=== PATIENT | female | born 1995 | race Caucasian/White ===

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

== ENCOUNTER 2017-06-21 15:32 | Emergency (ER) | payer OTHER ==
[2017-06-21] MEDS ORDERED: Zofran 4 MG/2 ML VIAL IV ONE (15:56)
[2017-06-21] MEDS ORDERED: Sodium Chloride 0.9% 1000 ML 1,000 ML IV STA (15:56)
[2017-06-21] MEDS ORDERED: MORPHINE SULFATE 10 MG/ML IV ONE ×2 (16:04→16:19)
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
[2017-06-21] MEDS ORDERED: MORPHINE SULFATE 10 MG/ML ONE ×2 (16:16→16:28)
[2017-06-21] MEDS ORDERED: Sodium Chloride 0.9% 1000 ML 1,000 ML ONE (16:16)
[2017-06-21] MEDS ORDERED: Zofran 4 MG/2 ML VIAL ONE (16:16)
[2017-06-21 16:21] LABS: Amphetamine,Urine NEGATIVE (NEGATIVE); Barbiturate,Urine NEGATIVE (NEGATIVE); Benzodiazepine,Urine NEGATIVE (NEGATIVE); Cocaine,Urine NEGATIVE (NEGATIVE); Methadone,Urine NEGATIVE (NEGATIVE); Opiate,Urine NEGATIVE (NEGATIVE); PCP,Urine NEGATIVE (NEGATIVE); THC,Urine POSITIVE (NEGATIVE)
[2017-06-21 16:23] LABS: Appearance HAZY (CLEAR); Bacteria MANY /HPF (NEGATIVE); Bilirubin NEGATIVE (NEGATIVE); Blood 250 Ery/ul (0-5); Epithelial Cells MODERATE /HPF (FEW); Glucose NEGATIVE (NEGATIVE); Ketones NEGATIVE (NEGATIVE); Leukocyte Esterase 2+ (NEGATIVE); Nitrite POSITIVE (NEGATIVE); Protein,Urine Dip 3+ (Negative); Urobilinogen NORMAL mg/dL (0-1); WBC >100 /HPF (0-5)
[2017-06-21 16:24] LABS: BASOPHIL % 0.1 % (0.0-0.4); Basophil (Absolute #) 0.01 (0-0.4); Eosinophil % 0.3 % (0.00-5.0); Eosinophil (Absolute #) 0.04 (0-0.5); Granulocyte Absolute (ANC) 8.06 (1.4-6.9); Granulocytes % 65.8 % (36.0-66.0); Hematocrit 36.9 % (35-47); Hemoglobin 12.2 gm/dl (12.0-16.0); Lymphocyte (Absolute #) 2.92 (1.0-4.6); Lymphocytes % 23.8 % (24.0-44.0); Mean Cell Volume 84.1 fl (78-100); Mean Corpuscular Hemoglobin 27.8 pg (26-32); Mean Corpuscular Hgb Concent. 33.1 g/dl (32-36); Mean Platelet Volume 10.7 fl (6-9.5); Monocyte (Absolute #) 1.22 (0.0-1.3); Platelet Count 302 K/mm3 (150-450); Red Blood Count 4.39 M/mm3 (4.1-5.4); Red Cell Distribution Width 13.2 % (11.5-14.0); White Blood Count 12.3 K/mm3 (4.0-10.5)
[2017-06-21] MEDS ORDERED: ROCEPHIN 2 Gm-D5w 50ML BAG** 2 G/50 ML IVPB IV STA (16:33)
[2017-06-21 16:40] LABS: ANION GAP 16.6 MEQ/L (5-15); BLOOD UREA NITROGEN 14 mg/dL (7-17); CHLORIDE 102 mmol/L (98-107); Calcium 10.2 mg/dL (8.4-10.2); Carbon Dioxide 27 mmol/L (22-30); Creatinine 1 0.79 mg/dL (0.52-1.04); Glucose 97 mg/dL (74-106); Potassium 3.9 mmol/L (3.5-5.1); SODIUM 141 mmol/L (137-145)
[2017-06-21] MEDS ORDERED: ROCEPHIN 2 Gm-D5w 50ML BAG** 2 G/50 ML IVPB IV ONE (17:11)
[2017-06-21 18:32] VITALS: BP 114/58; PULSE 92; O2SAT 100
--- NOTE | 2017-06-22 08:46 | XRAY ---
Indication: Right upper quadrant abdominal pain. Multiple contiguous axial images obtained through the abdomen and pelvis without contrast as ordered. Comparison: None Lung bases are clear. Heart is not enlarged. Noncontrasted stomach and bowel loops appear nonobstructed. Normal appendix. Mild gallbladder sludge. 2.5 cm left ovary cyst. No free fluid/air. Remaining liver, pancreas, spleen, adrenal glands, kidneys, ureters, bladder, uterus, and aorta appear unremarkable for noncontrast exam. Osseous structures intact. Impression: 1. Gallbladder sludge. Gallbladder sonogram may yield further information if clinically warranted. 2. 2.5 cm left ovary cyst. Comment: Preliminary interpretation was made by [facility]. No critical discrepancy. CT DI 11.11
== END 2017-06-21 18:31 | disposition home or self-care (01) ==
LOC: ED 15:32
DX: N12 Tubulo-interstitial nephritis, not specified as acute or chronic (principal)
CPT/HCPCS: 36000; 36415; 74176; 80048; 80307; 81000; 84703; 85025; 87040; 87077; 87086; 87186; 96360; 96365; 96374; 96375; 99284; J0696; J2270; J2405

== ENCOUNTER 2018-01-10 18:34 | Emergency (ER) | payer OTHER ==
[2018-01-10 18:50] VITALS: BP 149/90; PULSE 100; O2SAT 98
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
[2018-01-10] MEDS ORDERED: Adacel Vial IM ONE ×2 (19:13→19:15)
[2018-01-10] MEDS ORDERED: TORAdol 30 mg Injection IM ONE (19:20)
[2018-01-10] MEDS ORDERED: TORAdol 30 mg Injection ONE (19:20)
== END 2018-01-10 19:36 | disposition home or self-care (01) ==
LOC: ED 18:34
PROC: 0HQ1XZZ Repair Face Skin, External Approach (ICD-10-PCS; principal; 2018-01-10)
DX: S01.111A Laceration without foreign body of right eyelid and periocular area, initial encounter (principal); W01.198A Fall on same level from slipping, tripping and stumbling with subsequent striking against other object, initial encounter; Y93.01 Activity, walking, marching and hiking; Y92.009 Unspecified place in unspecified non-institutional (private) residence as the place of occurrence of the external cause
CPT/HCPCS: 12011; 90471; 90715; 96372; 99284; J1885

== ENCOUNTER 2018-02-08 14:29 | Emergency (ER) | payer OTHER ==
[2018-02-08] MEDS ORDERED: BACIGUENT PACKET TP ONE (14:55)
[2018-02-08] MEDS ORDERED: BACIGUENT PACKET ONE (14:57)
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
[2018-02-08 15:46] LABS: Amphetamine,Urine NEGATIVE (NEGATIVE); Barbiturate,Urine NEGATIVE (NEGATIVE); Benzodiazepine,Urine POSITIVE (NEGATIVE); Methadone,Urine NEGATIVE (NEGATIVE); Opiate,Urine NEGATIVE (NEGATIVE); PCP,Urine NEGATIVE (NEGATIVE); THC,Urine POSITIVE (NEGATIVE)
[2018-02-08 15:56] LABS: BASOPHIL % 0.1 % (0.0-0.4); Basophil (Absolute #) 0.01 (0-0.4); Eosinophil % 0.3 % (0.00-5.0); Eosinophil (Absolute #) 0.04 (0-0.5); Granulocyte Absolute (ANC) 11.01 (1.4-6.9); Granulocytes % 80.3 % (36.0-66.0); Hematocrit 41.4 % (35-47); Hemoglobin 13.6 gm/dl (12.0-16.0); Mean Cell Volume 88.1 fl (78-100); Mean Corpuscular Hemoglobin 28.9 pg (26-32); Mean Corpuscular Hgb Concent. 32.9 g/dl (32-36); Mean Platelet Volume 10.2 fl (6-9.5); Monocyte (Absolute #) 1.13 (0.0-1.3); Monocytes % 8.3 % (0.0-12.0); Platelet Count 306 K/mm3 (150-450); Red Cell Distribution Width 13.3 % (11.5-14.0); White Blood Count 13.7 K/mm3 (4.0-10.5)
[2018-02-08 16:03] VITALS: O2SAT 98
[2018-02-08 16:04] LABS: Cocaine,Urine NEGATIVE (NEGATIVE)
[2018-02-08 16:11] LABS: Appearance TURBID (CLEAR)
[2018-02-08 16:12] LABS: Bilirubin NEGATIVE (NEGATIVE); Blood NEGATIVE Ery/ul (0-5); Glucose NEGATIVE (NEGATIVE); Ketones NEGATIVE (NEGATIVE); Leukocyte Esterase MODERATE (NEGATIVE); Nitrite NEGATIVE (NEGATIVE); Protein,Urine Dip 100 (Negative); Specific Gravity 1.038 (1.005-1.025); Urobilinogen NORMAL mg/dL (0-1)
[2018-02-08 16:20] LABS: ACETAMINOPHEN 15 ug/ml (10-30); ALBUMIN 5.5 g/dL (3.5-5.0); ALKALINE PHOSPHATASE 59 U/L (38-126); ANION GAP 15.5 MEQ/L (5-15); BLOOD UREA NITROGEN 17 mg/dL (7-17); CHLORIDE 103 mmol/L (98-107); Calcium 10.4 mg/dL (8.4-10.2); Carbon Dioxide 26 mmol/L (22-30); Creatinine 1 0.82 mg/dL (0.52-1.04); Glucose 84 mg/dL (74-106); Potassium 3.7 mmol/L (3.5-5.1); SGOT/AST 41 U/L (14-36); SGPT/ALT 23 U/L (0-35); SODIUM 141 mmol/L (137-145); Total Protein 8.7 g/dL (6.3-8.2)
[2018-02-08 16:22] LABS: ETHYL ALCOHOL < 10 mg/dL (0-10); SALICYLATE < 1.0 mg/dL (2-20)
[2018-02-08 17:10] VITALS: BP 98/76; PULSE 76
[2018-02-08] MEDS ORDERED: BACTRIM DS TABLET PO ONE ×2 (17:24→17:27)
== END 2018-02-08 17:37 | disposition home or self-care (01) ==
LOC: ED 14:29
DX: S61.511A Laceration without foreign body of right wrist, initial encounter (principal); X78.9XXA Intentional self-harm by unspecified sharp object, initial encounter; F41.9 Anxiety disorder, unspecified; N39.0 Urinary tract infection, site not specified
CPT/HCPCS: 36415; 80053; 80307; 81001; 81025; 85025; 87077; 87086; 87186; 90791; 93005; 99284; G0480; G0481; Q3014; A9270-GY

== ENCOUNTER 2018-04-21 10:15 | Emergency (ER) | payer MEDICAID, OTHER ==
[2018-04-21] MEDS ORDERED: Sodium Chloride 0.9% 1000 ML 1,000 ML IV STA (10:43)
[2018-04-21] MEDS ORDERED: Sodium Chloride 0.9% 1000 ML 1,000 ML ONE (10:48)
[2018-04-21 11:09] LABS: BASOPHIL % 0.2 % (0.0-0.4); Basophil (Absolute #) 0.01 (0-0.4); Eosinophil % 0.2 % (0.00-5.0); Eosinophil (Absolute #) 0.01 (0-0.5); Granulocyte Absolute (ANC) 4.33 (1.4-6.9); Granulocytes % 65.7 % (36.0-66.0); Hematocrit 37.3 % (35-47); Hemoglobin 12.3 gm/dl (12.0-16.0); Lymphocyte (Absolute #) 1.08 (1.0-4.6); Lymphocytes % 16.4 % (24.0-44.0); Mean Cell Volume 86.7 fl (78-100); Mean Corpuscular Hemoglobin 28.6 pg (26-32); Mean Platelet Volume 10.9 fl (6-9.5); Monocyte (Absolute #) 1.15 (0.0-1.3); Monocytes % 17.5 % (0.0-12.0); Platelet Count 258 K/mm3 (150-450); Red Cell Distribution Width 12.3 % (11.5-14.0); White Blood Count 6.6 K/mm3 (4.0-10.5)
[2018-04-21 11:16] LABS: ALBUMIN 4.4 g/dL (3.5-5.0); ALKALINE PHOSPHATASE 39 U/L (38-126); ANION GAP 14.7 MEQ/L (5-15); BLOOD UREA NITROGEN 5 mg/dL (7-17); CHLORIDE 101 mmol/L (98-107); Calcium 9.3 mg/dL (8.4-10.2); Carbon Dioxide 25 mmol/L (22-30); Creatinine 1 0.59 mg/dL (0.52-1.04); Glucose 88 mg/dL (74-106); Potassium 3.4 mmol/L (3.5-5.1); SGOT/AST 21 U/L (14-36); SGPT/ALT 19 U/L (0-35); SODIUM 137 mmol/L (137-145); Total Protein 7.3 g/dL (6.3-8.2)
[2018-04-21 11:29] LABS: Appearance CLEAR (CLEAR); Bacteria RARE /HPF (NEGATIVE); Bilirubin NEGATIVE (NEGATIVE); Blood NEGATIVE Ery/ul (0-5); Epithelial Cells RARE /HPF (FEW); Glucose NEGATIVE (NEGATIVE); Ketones TRACE (NEGATIVE); Leukocyte Esterase SMALL (NEGATIVE); Mucus SLIGHT /HPF (NEGATIVE); Nitrite NEGATIVE (NEGATIVE); Protein,Urine Dip NEGATIVE (Negative); Urobilinogen 2 mg/dL (0-1)
[2018-04-21] MEDS ORDERED: Klor Con 10 MEQ PO ONE ×2 (11:47→12:00)
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
[2018-04-21 12:05] VITALS: BP 122/66; PULSE 86; O2SAT 92
== END 2018-04-21 12:22 | disposition home or self-care (01) ==
LOC: ED 10:15
DX: O21.0 Mild hyperemesis gravidarum (principal); Z3A.00 Weeks of gestation of pregnancy not specified
CPT/HCPCS: 36000; 36415; 80053; 81001; 81025; 85025; 96360; 96374; 99284; A9270-GY

== ENCOUNTER 2018-08-16 21:20 | Emergency (ER) | payer OTHER ==
[2018-08-16 21:37] VITALS: BP 158/85; PULSE 93; O2SAT 100
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
== END 2018-08-16 22:20 | disposition home or self-care (01) ==
LOC: ED 21:20
DX: Z04.89 Encounter for examination and observation for other specified reasons (principal)
CPT/HCPCS: 99283

== ENCOUNTER 2018-09-12 11:58 | Emergency (ER) | payer OTHER ==
[2018-09-12 12:19] VITALS: BP 118/70; O2SAT 98
[2018-09-12] MEDS ORDERED: TORAdol 30 mg Injection IM ONE (12:32)
[2018-09-12] MEDS ORDERED: TORAdol 30 mg Injection ONE (12:33)
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
[2018-09-12 12:48] VITALS: PULSE 74
== END 2018-09-12 12:47 | disposition home or self-care (01) ==
LOC: ED 11:58
DX: N75.0 Cyst of Bartholin's gland (principal); Z3A.29 29 weeks gestation of pregnancy
CPT/HCPCS: 96372; 99284; J1885

== ENCOUNTER 2018-12-08 02:10 | Inpatient (IN) | payer MEDICAID ==
[2018-12-08] MEDS ORDERED: BRETHINE 1 MG/ML SQ PRN (18:00)
[2018-12-08] MEDS ORDERED: PITOCIN 30 UNITS/ LR 500 ML 500 ML IV SCH (18:00)
[2018-12-08] MEDS ORDERED: Cervidil 10 MG VAG SCH (18:00)
[2018-12-08] MEDS ORDERED: Zofran 4 MG/2 ML VIAL IV PRN (18:00)
[2018-12-08] MEDS ORDERED: TYLENOL EXTRA STRENGTH 500 MG PO PRN (18:00)
[2018-12-08] MEDS ORDERED: Phenergan 25 MG INJ IV PRN (18:00)
[2018-12-08] MEDS: Lactated Ringers 1,000 ML IV SCH (19:52)
[2018-12-08 19:57] LABS: BASOPHIL % 0.1 % (0.0-0.4); Basophil (Absolute #) 0.01 (0-0.4); Eosinophil % 0.4 % (0.00-5.0); Eosinophil (Absolute #) 0.05 (0-0.5); Granulocyte Absolute (ANC) 8.99 (1.4-6.9); Granulocytes % 70.3 % (36.0-66.0); Hematocrit 34.7 % (35-47); Hemoglobin 11.2 gm/dl (12.0-16.0); Lymphocyte (Absolute #) 2.62 (1.0-4.6); Lymphocytes % 20.5 % (24.0-44.0); Mean Cell Volume 88.1 fl (78-100); Mean Corpuscular Hemoglobin 28.4 pg (26-32); Mean Corpuscular Hgb Concent. 32.3 g/dl (32-36); Mean Platelet Volume 12.6 fl (6-9.5); Monocyte (Absolute #) 1.11 (0.0-1.3); Monocytes % 8.7 % (0.0-12.0); Platelet Count 245 K/mm3 (150-450); Red Blood Count 3.94 M/mm3 (4.1-5.4); Red Cell Distribution Width 14.6 % (11.5-14.0); White Blood Count 12.8 K/mm3 (4.0-10.5)
[2018-12-08 20:19] LABS: Appearance CLEAR (CLEAR); Bilirubin NEGATIVE (NEGATIVE); Blood NEGATIVE Ery/ul (0-5); Epithelial Cells RARE /HPF (FEW); Glucose NEGATIVE (NEGATIVE); Hyaline Casts 0-2 /LPF (0-2); Ketones NEGATIVE (NEGATIVE); Leukocyte Esterase NEGATIVE (NEGATIVE); Mucus SLIGHT /HPF (NEGATIVE); Nitrite NEGATIVE (NEGATIVE); Protein,Urine Dip NEGATIVE (Negative); Specific Gravity 1.026 (1.005-1.025); Urobilinogen NEGATIVE mg/dL (0-1)
[2018-12-08 20:21] LABS: Amphetamine,Urine NEGATIVE (NEGATIVE); Barbiturate,Urine NEGATIVE (NEGATIVE); Benzodiazepine,Urine NEGATIVE (NEGATIVE); Cocaine,Urine NEGATIVE (NEGATIVE); Methadone,Urine NEGATIVE (NEGATIVE); Opiate,Urine NEGATIVE (NEGATIVE); PCP,Urine NEGATIVE (NEGATIVE); THC,Urine NEGATIVE (NEGATIVE)
[2018-12-09] MEDS: Lactated Ringers 1,000 ML IV SCH ×2 (00:42→04:59)
[2018-12-09] MEDS ORDERED: PROCARDIA 10 MG PO ONE (01:35)
[2018-12-09] MEDS ORDERED: Pepcid 20 MG PO PRN (02:20)
[2018-12-09] MEDS ORDERED: TYLENOL 325 MG PO PRN (02:22)
[2018-12-09] MEDS ORDERED: BRETHINE 1 MG/ML SQ PRN (05:00)
[2018-12-09] MEDS ORDERED: PITOCIN 30 UNITS/ LR 500 ML 500 ML IV SCH (05:00)
[2018-12-09] MEDS ORDERED: Lactated Ringers 1,000 ML IV ONE ×2 (08:21→13:28)
[2018-12-09] MEDS ORDERED: CEFAZOLIN 2 GM-D5W BAG** 2 GM/50 ML ML IV SCH (08:30)
[2018-12-09] MEDS ORDERED: Reglan 10 MG/2 ML IV SCH (08:30)
[2018-12-09] MEDS ORDERED: BICITRA 30 ML CUP PO SCH (08:30)
[2018-12-09] MEDS ORDERED: Pepcid 20 MG VIAL IV SCH (08:30)
[2018-12-09 09:34] LABS: INR 0.9 (0.8-3.0); PROTIME 10.2 SECONDS (9.95-12.35)
[2018-12-09 09:36] LABS: PTT 26.5 SECONDS (25.3-37.0)
[2018-12-09 09:59] LABS: ABO TYPING A; Antibody Screen NEGATIVE (NEGATIVE); RH TYPING POSITIVE
[2018-12-09] MEDS ORDERED: TUCKS TP PRN (13:00)
[2018-12-09] MEDS: Colace 100 MG PO SCH ×3 (13:00→22:04)
[2018-12-09] MEDS ORDERED: DEMEROL 50 MG IV PRN ×2 (13:00→15:00)
[2018-12-09] MEDS ORDERED: Phenergan 25 MG INJ IV PRN (13:00)
[2018-12-09] MEDS ORDERED: Mylicon 80MG PO PRN (13:00)
[2018-12-09] MEDS ORDERED: CORTISONE 1% CREAM TP PRN (13:00)
[2018-12-09] MEDS ORDERED: Anucort-HC SUPPOSITORY PR PRN (13:00)
[2018-12-09] MEDS ORDERED: Dulcolax 10 MG SUPP PR PRN (13:00)
[2018-12-09] MEDS ORDERED: LANSINOH 40 GM TOP PRN (13:00)
[2018-12-09] MEDS ORDERED: Ambien 10 MG PO PRN (13:00)
[2018-12-09] MEDS ORDERED: Sensorcaine 0.25% 10 ML ONE (13:28)
[2018-12-09] MEDS ORDERED: Astramorph-Pf 5 MG/10 ML ONE (13:47)
[2018-12-09] MEDS ORDERED: Ephedrine Sulfate 50 MG/ML ONE (13:59)
[2018-12-09] MEDS ORDERED: Marcaine 0.5%/Epinephrine 10 ML ONE (14:14)
[2018-12-09] MEDS ORDERED: Pitocin 10 UNITS/ML ONE (14:16)
[2018-12-09] MEDS ORDERED: Marcaine 0.5%/Epinephrine 10 ML IJ ONE (14:33)
[2018-12-09] MEDS ORDERED: ENGERIX-B 10 MCG FREE PEDIATRIC IM ONE (14:45)
[2018-12-09] MEDS ORDERED: XYLOCAINE 1% HCL 20 ML MDV IJ PRN (14:45)
[2018-12-09] MEDS ORDERED: Erythromycin 1 GM OP ONE (14:45)
[2018-12-09] MEDS ORDERED: Vitamin K 1 MG IM ONE (14:45)
[2018-12-09] MEDS ORDERED: BENADRYL 50 MG/ML ONE (14:46)
[2018-12-09] MEDS ORDERED: Zofran 4 MG/2 ML VIAL ONE (14:48)
[2018-12-09] MEDS ORDERED: Narcan 0.4 MG/ML IV PRN (15:00)
[2018-12-09] MEDS ORDERED: BENADRYL 50 MG/ML IV PRN (15:00)
[2018-12-09] MEDS ORDERED: Sodium Chloride 0.9% 10 ML FLUSH Syringe IJ PRN (15:00)
[2018-12-09] MEDS ORDERED: CLARITIN 10 MG PO PRN (15:00)
[2018-12-09] MEDS ORDERED: MORPHINE SULFATE 2 MG INJ IV PRN (15:00)
[2018-12-09] MEDS ORDERED: Nubain 10 MG/ML IV PRN (15:00)
[2018-12-09] MEDS: Dextrose 5%-Lr IV Solution 1000 ML 1,000 ML IV SCH ×2 (15:27→23:33)
[2018-12-09 15:34] LABS: Appearance CLEAR (CLEAR); Bilirubin NEGATIVE (NEGATIVE); Blood NEGATIVE Ery/ul (0-5); Epithelial Cells RARE /HPF (FEW); Glucose NEGATIVE (NEGATIVE); Ketones NEGATIVE (NEGATIVE); Leukocyte Esterase NEGATIVE (NEGATIVE); Nitrite NEGATIVE (NEGATIVE); Protein,Urine Dip NEGATIVE (Negative); Specific Gravity 1.014 (1.005-1.025); Urobilinogen NEGATIVE mg/dL (0-1)
[2018-12-09] MEDS ORDERED: HOLD NARCOTIC ANALGESICS AND SEDATIVES X24 HR MC PRN (18:17)
[2018-12-09] MEDS ORDERED: Zofran 4 MG/2 ML VIAL IV PRN (18:22)
[2018-12-09] MEDS: MOTRIN 400 MG PO PRN (20:06)
[2018-12-09] MEDS: PERCOCET TABLET 5/325MG PO PRN (21:56)
[2018-12-10] MEDS: MOTRIN 400 MG PO PRN ×3 (01:56→20:17)
[2018-12-10] MEDS: PERCOCET TABLET 5/325MG PO PRN ×2 (01:58→05:58)
[2018-12-10 05:02] LABS: BASOPHIL % 0.1 % (0.0-0.4); Basophil (Absolute #) 0.01 (0-0.4); Eosinophil % 0.4 % (0.00-5.0); Eosinophil (Absolute #) 0.05 (0-0.5); Granulocyte Absolute (ANC) 8.83 (1.4-6.9); Granulocytes % 75.8 % (36.0-66.0); Hematocrit 28.4 % (35-47); Hemoglobin 9.1 gm/dl (12.0-16.0); Lymphocyte (Absolute #) 1.65 (1.0-4.6); Lymphocytes % 14.2 % (24.0-44.0); Mean Cell Volume 90.2 fl (78-100); Mean Platelet Volume 12.5 fl (6-9.5); Monocytes % 9.5 % (0.0-12.0); Platelet Count 197 K/mm3 (150-450); Red Blood Count 3.15 M/mm3 (4.1-5.4); Red Cell Distribution Width 14.7 % (11.5-14.0); White Blood Count 11.6 K/mm3 (4.0-10.5)
[2018-12-10 05:07] LABS: Mean Corpuscular Hemoglobin 28.8 pg (26-32)
[2018-12-10] MEDS ORDERED: CLARITIN 10 MG ONE (05:56)
[2018-12-10] MEDS ORDERED: PERCOCET TABLET 5/325MG ONE (05:57)
[2018-12-10] MEDS: FERREX 150 PO SCH ×2 (09:11→09:12)
[2018-12-10] MEDS: Colace 100 MG PO SCH ×2 (09:12→21:46)
--- NOTE | 2018-12-10 11:02 | OP ---
SURGERY DATE: 12/09/18 SURGERY TIME: 1343 PREOPERATIVE DIAGNOSES: 1. FAILED INDUCTION OF LABOR. 2. TERM INTRAUTERINE . POSTOPERATIVE DIAGNOSES: 1. FAILED INDUCTION OF LABOR. 2. TERM INTRAUTERINE . PROCEDURE: 1. Primary low transverse section. SURGEON: Herson Acosta M.D. ANESTHESIA: Spinal by Cristi Paz CRNA. ESTIMATED BLOOD LOSS: 300 cc. URINE: 100 cc of clear, straw-colored urine. IV FLUIDS: 900 cc of crystalloid. SPECIMEN: 1. Placenta was sent for pathology. DESCRIPTION OF PROCEDURE: After informed written consent was obtained, the patient was taken to the OR. She underwent spinal anesthesia. Was prepped and draped in the usual sterile fashion. After adequate level of anesthesia was confirmed, low transverse skin incision was made by knife and carried down through the subcutaneous fat to the level of the fascia. The fascia was nicked on both sides of the midline and extended in a horizontal using curved Lindsay scissors. The superior free edge of the fascia was grasped with Stu clamps. The underlying rectus muscles were dissected free. The same was repeated inferiorly. The peritoneal cavity was then opened and extended in a horizontal and then a bladder flap was created and reflected over the lower uterine segment. A horizontal uterine incision was made by knife and carried down to the level of the amniotic membranes which were carefully artificially ruptured. A viable, vigorous male infant with loose nuchal X 1 was delivered from the vertex presentation. Oropharynx and nares were bulb suctioned free. Cord was clamped and cut and Dr. Mohan broke scrub at that time to care for the . The uterus was then exteriorized after the placenta was manually extracted. A Lap sponge was used to sponge curette the uterine cavity clean and then a #1 chromic was used in a running, locked fashion to provide good hemostasis and good closure of the uterine incision. The posterior cul-de-sac was wiped free of any blood or clot with a moist Lap sponge. The uterus was then returned to the peritoneal cavity. Lateral gutters were wiped free of blood and clot. Again, the uterine incision was inspected and noted to be hemostatic with good closure. Next, the fascia was closed with 0 Vicryl in a running fashion. Good closure and good hemostasis were achieved. Subcutaneous fat was irrigated with warm, sterile saline and any areas of bleeding were cauterized with electrocautery. Finally, the skin layer was closed with 4-0, undyed Vicryl in running subcuticular fashion. Steri-Strips and an occlusive dressing were placed over the incision and the patient was transferred to the recovery room in good condition.
[2018-12-10] MEDS: NORCO 5/325 MG PO PRN ×2 (16:46→21:46)
[2018-12-11] MEDS: MOTRIN 400 MG PO PRN ×3 (02:26→17:40)
[2018-12-11] MEDS: NORCO 5/325 MG PO PRN ×3 (02:26→17:40)
[2018-12-11 02:51] VITALS: O2SAT 99
[2018-12-11] MEDS: FERREX 150 PO SCH (09:50)
[2018-12-11] MEDS: Colace 100 MG PO SCH (09:50)
--- NOTE | 2018-12-11 11:03 | PCM.DS ---
Discharge Summary Date of Admission: 12/09/18 02:10 Admitting Physician: HONG FRANKEL Consults: Consults on Case 12/09/18 08:22 Notify Anesthesia Provider ROUTINE Notify Physician OF ADMISSION 12/09/18 18:17 Notify Anesthesia Provider PRN Primary Care Provider: HONG FRANKEL Allergies Allergies paper tape Allergy (Uncoded 08/16/18 21:25) Hospital Summary - Hospital Course Hospital Course: Pt was admitted at 40 wks for term IOL; came in 23 yo . No issues this . She desired but she did agree to trial of labor, although her cervix was not favorable for induction. She was given cervadil but it had to be removed after about 4 hours due to some late decelerations. Her cervix was still thick and long. She was taken to the following day and had surgery wtihout complication (for full details, see Dr. Acosta' operative note). She has recovered uneventfully. Her postoperative hgb was 9.1. She will go home with norco and ibuprofen. Pumping breast milk. - Vitals & Intake/Output Vital Signs: Vital Signs Temperature 97.9 F 12/11/18 08:30 Pulse Rate 71 12/11/18 08:30 Respiratory Rate 18 12/11/18 08:30 Blood Pressure 133/78 12/11/18 08:30 O2 Sat by Pulse Oximetry 99 12/11/18 02:00 Intake & Output: Intake & Output 12/08/18 12/09/18 12/10/18 12/11/18 11:59 11:59 11:59 11:59 Intake Total 2850 4328 1950 Output Total 1100 Balance 2850 3228 1950 Weight 71.668 kg - Lab Result Diagrams: 12/10/18 04:30 Lab Results-Last 24 Hrs: Lab Results-Last 24 Hours 12/08/18 Range/Units Unknown Hep Bs Antigen Non Reactive (Non Reactive) Micro Results-Entire Visit: Microbiology 12/09/18 14:21 Urine Culture - Preliminary Catherized NO GROWTH TO DATE Discharge Exam General Appearance: no apparent distress, alert Neurologic Exam: oriented x 3, cooperative Eye Exam: eyes nml inspection Ears, Nose, Throat Exam: moist mucous membranes Neck Exam: normal inspection Respiratory Exam: normal breath sounds, lungs clear, No crackles/rales, No rhonchi, No wheezing Cardiovascular Exam: regular rate/rhythm, normal heart sounds, No murmur Gastrointestinal/Abdomen Exam: soft, normal bowel sounds, other (wound c/d/i fundus firm inferior to umbilicus) Extremity Exam: swelling (1+ LE edema bilat) Skin Exam: normal color, warm, dry, No rash Final Diagnosis/Problem List - Final Discharge Diagnosis/Problem (1) delivery delivered Current Visit: Yes Status: Acute Assessment & Plan: Doing great, POD #2. Home today with baby. Code(s): O82 - ENCOUNTER FOR DELIVERY WITHOUT INDICATION (2) Anemia Current Visit: Yes Status: Acute Assessment & Plan: Home on iron daily. Code(s): D64.9 - ANEMIA, UNSPECIFIED - Discharge Disposition: Home, Self-Care Condition: Good Prescriptions: New Docusate Sodium 100 mg [Colace 100 MG] 100 mg PO BID capsule Ibuprofen 600 mg PO QID PRN #35 tablet PRN Reason: Pain Hydrocodone/APAP 5-325 Tab^^^ [[place] 5-325 Tablet^^^] 1 each PO Q4H PRN #30 tablet MDD 6 PRN Reason: Severe Pain Continue Vits W-Ca,Fe,FA(<1Mg) [] 1 tab PO DAILY PRN raNITIdine HCl [Zantac] 150 mg PO DAILY PRN PRN Reason: Heartburn Follow up with: HONG FRANKEL [Primary Care Provider] - 1 Week
[2018-12-11 20:55] VITALS: BP 134/69; PULSE 98
== END 2018-12-11 20:15 | disposition home or self-care (01) | DRG 788 ==
LOC: OB 02:10 → OBSVTOIN 12-09 02:10
PROVIDERS: ADMIT Family Medicine; ATTEND Family Medicine
PROC: 10D00Z1 Extraction of Products of Conception, Low, Open Approach (ICD-10-PCS; principal; 2018-12-09)
DX: O61.0 Failed medical induction of labor (principal); Z3A.40 40 weeks gestation of pregnancy; Z37.0 Single live birth
CPT/HCPCS: 36415; 62322; 64486; 64488; 76805; 76937; 76942; 80307; 81001; 85025; 85610; 85730; 86850; 86900; 86901; 87086; 87340; 88307; 94799; G0378; J0690; J1200; J2274; J2300; J2405; J2590; L0625; A9270-GY

== ENCOUNTER 2019-04-25 13:09 | Emergency (ER) | payer OTHER ==
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
[2019-04-25] MEDS ORDERED: Sodium Chloride 0.9% 1000 ML 1,000 ML IV STA ×2 (13:43→15:29)
[2019-04-25] MEDS ORDERED: Zofran 4 MG/2 ML VIAL IV ONE (13:43)
[2019-04-25] MEDS ORDERED: Hydromorphone 1 mg/ml Ampule IV ONE (13:43)
[2019-04-25] MEDS ORDERED: Zofran 4 MG/2 ML VIAL ONE (13:49)
[2019-04-25] MEDS ORDERED: Sodium Chloride 0.9% 1000 ML 1,000 ML ONE ×2 (13:49→15:32)
[2019-04-25] MEDS ORDERED: Hydromorphone 1 mg/ml Ampule ONE (13:49)
[2019-04-25 14:15] LABS: ALBUMIN 4.5 g/dL (3.5-5.0); ALKALINE PHOSPHATASE 70 U/L (38-126); AMYLASE 116 U/L (30-110); ANION GAP 14.9 MEQ/L (5-15); BLOOD UREA NITROGEN 15 mg/dL (7-17); CHLORIDE 104 mmol/L (98-107); Calcium 9.3 mg/dL (8.4-10.2); Carbon Dioxide 24 mmol/L (22-30); Creatinine 1 0.67 mg/dL (0.52-1.04); Glucose 127 mg/dL (74-106); LIPASE 74 U/L (23-300); Potassium 4.2 mmol/L (3.5-5.1); SGOT/AST 24 U/L (14-36); SGPT/ALT 14 U/L (0-35); SODIUM 139 mmol/L (137-145); Total Protein 7.8 g/dL (6.3-8.2)
[2019-04-25 14:18] LABS: Basophil (Absolute #) 0 (0-0.4); Eosinophil % 0.1 % (0.00-5.0); Eosinophil (Absolute #) 0.01 (0-0.5); Hematocrit 40.6 % (35-47); Hemoglobin 12.7 gm/dl (12.0-16.0); Lymphocyte (Absolute #) 0.33 (1.0-4.6); Lymphocytes % 3.4 % (24.0-44.0); Mean Cell Volume 80.9 fl (78-100); Mean Corpuscular Hemoglobin 25.3 pg (26-32); Mean Corpuscular Hgb Concent. 31.3 g/dl (32-36); Mean Platelet Volume 11.2 fl (7.5-11.0); Monocytes % 5.1 % (0.0-12.0); Neutrophil % 91.4 % (36.0-66.0); Platelet Count 234 K/mm3 (150-450); Red Blood Count 5.02 M/mm3 (4.1-5.4); Red Cell Distribution Width 14.9 % (11.5-14.0); White Blood Count 9.7 K/mm3 (4.0-10.5)
--- NOTE | 2019-04-25 15:09 | XRAY ---
Indication: Abdomen pain, nausea, vomiting, diarrhea. Multiple contiguous axial images obtained through the abdomen and pelvis without contrast as ordered. Comparison: June 21, 2017. Lung bases remain clear. Heart is not enlarged. Noncontrasted stomach and bowel loops appear nonobstructed. Normal appendix. Uterus is prominent with new tampon in situ. No free fluid/air. Remaining liver, gallbladder, pancreas, spleen, adrenal glands, kidneys, ureters, bladder, uterus, and aorta appear unremarkable for noncontrast exam. Osseous structures intact. No ventral or inguinal hernias. Impression: 1. Prominent uterus with tampon in situ. 2. Remaining CT abdomen/pelvis without contrast exam is negative.
[2019-04-25 15:13] LABS: INFLUENZA A NEGATIVE (NEGATIVE); INFLUENZA B NEGATIVE (NEGATIVE); RESPIRATORY SYNCTIAL VIRUS NEGATIVE (Negative)
[2019-04-25 15:31] LABS: Appearance CLEAR (CLEAR); Bacteria RARE /HPF (NEGATIVE); Bilirubin NEGATIVE (NEGATIVE); Blood NEGATIVE Ery/ul (0-5); Epithelial Cells FEW /HPF (FEW); Glucose NEGATIVE (NEGATIVE); Ketones TRACE (NEGATIVE); Leukocyte Esterase NEGATIVE (NEGATIVE); Mucus SLIGHT /HPF (NEGATIVE); Nitrite NEGATIVE (NEGATIVE); Protein,Urine Dip NEGATIVE (Negative); RBC 0-2 /HPF (0-2); Specific Gravity 1.023 (1.005-1.025); Urobilinogen NEGATIVE mg/dL (0-1)
[2019-04-25 17:04] VITALS: BP 128/62; PULSE 77; O2SAT 99
[2019-04-25 20:37] LABS: Slide Review 1 YES
== END 2019-04-25 17:02 | disposition home or self-care (01) ==
LOC: ED 13:09
DX: R10.9 Unspecified abdominal pain (principal); R11.10 Vomiting, unspecified; R19.7 Diarrhea, unspecified
CPT/HCPCS: 36415; 74176; 80053; 81001; 81025; 82150; 83605; 83690; 85025; 87086; 87631; 87651; 96360; 96361; 96374; 96375; 99284; J1170; J2405

== ENCOUNTER 2019-06-03 16:49 | Emergency (ER) | payer OTHER ==
[2019-06-03 17:01] VITALS: BP 157/78; PULSE 88; O2SAT 100
[2019-06-03] MEDS ORDERED: DUONEB 0.5-3 MG/3 ml Neb IH ONE ×2 (17:19→17:26)
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
[2019-06-03 18:04] LABS: INFLUENZA B NEGATIVE (NEGATIVE); RESPIRATORY SYNCTIAL VIRUS NEGATIVE (Negative)
[2019-06-03 18:17] LABS: INFLUENZA A POSITIVE (NEGATIVE)
--- NOTE | 2019-06-03 21:53 | XRAY ---
Indication: Cough, short of breath, and body ache 3 days. Comparison: April 26, 2012. PA/lateral chest again demonstrates normal heart and lungs. Bony thorax intact again with minimal dextroscoliosis.
== END 2019-06-03 18:40 | disposition home or self-care (01) ==
LOC: ED 16:49
DX: J10.1 Influenza due to other identified influenza virus with other respiratory manifestations (principal)
CPT/HCPCS: 71046; 87631; 94150; 94640; 99283; A9270-GY

== ENCOUNTER 2020-10-02 19:31 | Emergency (ER) | payer OTHER ==
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
[2020-10-02] MEDS ORDERED: KEFLEX 500 MG PO ONE (21:16)
[2020-10-02] MEDS ORDERED: KEFLEX 500 MG ONE (21:18)
[2020-10-02 21:21] VITALS: BP 130/89; PULSE 68; O2SAT 98
== END 2020-10-02 21:27 | disposition home or self-care (01) ==
LOC: ED 19:31
DX: R59.0 Localized enlarged lymph nodes (principal)
CPT/HCPCS: 99283; A9270-GY

== ENCOUNTER 2021-06-26 20:05 | Observation (INO) | payer OTHER ==
[2021-06-26] MEDS ORDERED: Lactated Ringers 1,000 ML IV ONE (21:16)
[2021-06-26] MEDS: Lactated Ringers 1,000 ML IV ONE (21:19)
[2021-06-26 22:17] LABS: Hematocrit 32.8 % (35-47); Hemoglobin 10.7 gm/dl (12.0-16.0); Mean Cell Volume 89.4 fl (78-100); Mean Corpuscular Hemoglobin 29.2 pg (26-32); Mean Corpuscular Hgb Concent. 32.6 g/dl (32-36); Mean Platelet Volume 10.5 fl (7.5-11.0); Platelet Count 326 K/mm3 (150-450); Red Blood Count 3.67 M/mm3 (4.1-5.4); Red Cell Distribution Width 13.4 % (11.5-14.0)
[2021-06-26 22:22] LABS: ALBUMIN 3.7 g/dL (3.5-5.0); ALKALINE PHOSPHATASE 85 U/L (38-126); ANION GAP 12.4 MEQ/L (5-15); BLOOD UREA NITROGEN 8 mg/dL (7-17); CHLORIDE 104 mmol/L (98-107); Calcium 8.8 mg/dL (8.4-10.2); Carbon Dioxide 23 mmol/L (22-30); Creatinine 1 0.49 mg/dL (0.52-1.04); EST GLOMERULAR FILTRATION RATE > 60.0 ML/MIN; Glucose 77 mg/dL (74-106); Potassium 3.6 mmol/L (3.5-5.1); SGOT/AST 20 U/L (14-36); SGPT/ALT 9 U/L (0-35); SODIUM 136 mmol/L (137-145); Total Protein 6.8 g/dL (6.3-8.2)
[2021-06-26 22:26] LABS: Appearance CLEAR (CLEAR); Bilirubin NEGATIVE (NEGATIVE); Dipstick done @ ? MAIN LAB; Glucose NEGATIVE (NEGATIVE); Ketones NEGATIVE (NEGATIVE); Nitrite NEGATIVE (NEGATIVE); Ph 6.5 (5-6); Protein,Urine Dip NEGATIVE (Negative); RBC NEGATIVE Ery/ul (0-5); Specific Gravity >=1.030 (1.005-1.025); Urobilinogen 0.2 mg/dL (0-1)
[2021-06-26 22:28] LABS: Mucus SLIGHT /HPF (NEGATIVE)
[2021-06-26 22:29] LABS: Epithelial Cells RARE /HPF (FEW); Urine Cultured Indicated? NO
[2021-06-26 22:36] LABS: Amphetamine,Urine NEGATIVE (NEGATIVE); Barbiturate,Urine NEGATIVE (NEGATIVE); Benzodiazepine,Urine NEGATIVE (NEGATIVE); Methadone,Urine NEGATIVE (NEGATIVE); Opiate,Urine NEGATIVE (NEGATIVE); PCP,Urine NEGATIVE (NEGATIVE); THC,Urine NEGATIVE (NEGATIVE)
[2021-06-26 22:42] LABS: Cocaine,Urine NEGATIVE (NEGATIVE)
[2021-06-26 23:14] VITALS: BP 120/70; PULSE 92; O2SAT 98
[2021-06-27 01:27] LABS: Lymphocytes 18 % (24-44); Monocyte 6 % (0.0-12.0); Neutrophils 76 % (36.0-66.0); Platelet Estimate NORMAL (NORMAL); Total Cells Counted 100
== END 2021-06-26 23:05 | disposition home or self-care (01) ==
LOC: OB 20:05
PROVIDERS: ADMIT Family Medicine; ATTEND Family Medicine
DX: Z34.82 Encounter for supervision of other normal pregnancy, second trimester (principal); Z3A.25 25 weeks gestation of pregnancy
CPT/HCPCS: 36415; 59025; 80053; 80307; 81015; 85025; G0378

== ENCOUNTER 2021-10-02 05:52 | Inpatient (IN) | payer OTHER ==
[~2021-10-02 05:52] MED LIST: Lactated Ringers 1,000 ML IV ONE; Lactated Ringers 1,000 ML IV SCH
[2021-10-02] MEDS ORDERED: Reglan 10 MG/2 ML IV SCH (06:00)
[2021-10-02] MEDS ORDERED: CEFAZOLIN 2 GM-D5W BAG** 2 GM/50 ML ML IV SCH (06:00)
[2021-10-02] MEDS ORDERED: SOD CITRATE-CITRIC ACID SOLN PO SCH (06:00)
[2021-10-02] MEDS ORDERED: Pepcid 20 MG VIAL IV SCH (06:00)
[2021-10-02 06:48] LABS: Hematocrit 29.6 % (35-47); Hemoglobin 9.3 g/dL (12.0-16.0); Mean Cell Volume 81.5 fL (78-100); Mean Corpuscular Hemoglobin 25.6 pg (26-32); Mean Corpuscular Hgb Concent. 31.4 g/dL (32-36); Mean Platelet Volume 11.8 fL (7.5-11.0); Platelet Count 249 x10^3/uL (150-450); Red Blood Count 3.63 x10^6/uL (4.1-5.4); Red Cell Distribution Width 14.5 % (11.5-14.0); White Blood Count 8.6 x10^3/uL (4.0-10.5)
[2021-10-02 06:56] LABS: INR 0.95 (0.8-3.0); PROTIME 10.1 SECONDS (9.4-12.5); PTT 22.6 SECONDS (25.1-36.5)
[2021-10-02 07:05] LABS: Amphetamine,Urine NEGATIVE (NEGATIVE); Barbiturate,Urine NEGATIVE (NEGATIVE); Benzodiazepine,Urine NEGATIVE (NEGATIVE); Cocaine,Urine NEGATIVE (NEGATIVE); Methadone,Urine NEGATIVE (NEGATIVE); Opiate,Urine NEGATIVE (NEGATIVE); PCP,Urine NEGATIVE (NEGATIVE); THC,Urine NEGATIVE (NEGATIVE)
[2021-10-02 07:36] LABS: ABO TYPING A; Antibody Screen NEGATIVE (NEGATIVE); RH TYPING POSITIVE
[2021-10-02] MEDS ORDERED: Pitocin 10 UNITS/ML ONE (07:51)
[2021-10-02] MEDS ORDERED: PHENYLEPHRINE HCL ONE (07:52)
[2021-10-02] MEDS ORDERED: Astramorph-Pf 5 MG/10 ML ONE (07:53)
[2021-10-02] MEDS ORDERED: OFIRMEV 100 ML IV ONE (07:57)
[2021-10-02] MEDS ORDERED: Lactated Ringers 2,000 ML IV ONE (07:57)
[2021-10-02] MEDS ORDERED: EXPAREL 133 MG/10 ML VIAL IJ ONE (08:56)
[2021-10-02] MEDS ORDERED: Marcaine 0.5%/Epinephrine 10 ML ONE (08:57)
[2021-10-02] MEDS ORDERED: Narcan 0.4 MG/ML IV PRN (09:00)
[2021-10-02] MEDS ORDERED: MORPHINE SULFATE 2 MG INJ IV PRN (09:00)
[2021-10-02] MEDS ORDERED: Zofran 4 MG/2 ML VIAL IV PRN (09:00)
[2021-10-02] MEDS ORDERED: BENADRYL 50 MG/ML IV PRN (09:00)
[2021-10-02] MEDS ORDERED: CLARITIN 10 MG PO PRN (09:00)
[2021-10-02] MEDS ORDERED: HOLD NARCOTIC ANALGESICS AND SEDATIVES X24 HR MC PRN (09:00)
[2021-10-02] MEDS ORDERED: Mylicon 80MG PO PRN (09:00)
[2021-10-02] MEDS ORDERED: Dulcolax 10 MG SUPP PR PRN (09:00)
[2021-10-02] MEDS ORDERED: DEMEROL 50 MG IV PRN (09:00)
[2021-10-02] MEDS ORDERED: Nubain 10 MG/ML IV PRN (09:00)
[2021-10-02] MEDS ORDERED: PERCOCET TABLET 5/325MG PO PRN (09:00)
[2021-10-02] MEDS ORDERED: TYLENOL EXTRA STRENGTH 500 MG PO PRN (09:00)
[2021-10-02] MEDS ORDERED: LANSINOH 40 GM TOP PRN (09:00)
[2021-10-02 10:06] LABS: Appearance CLEAR (CLEAR); Bilirubin NEGATIVE (NEGATIVE); Dipstick done @ ? MAIN LAB; Glucose NEGATIVE (NEGATIVE); Ketones SMALL-15 (NEGATIVE); Nitrite NEGATIVE (NEGATIVE); Ph 6.5 (5-6); Protein,Urine Dip NEGATIVE (Negative); RBC NEGATIVE Ery/ul (0-5); Specific Gravity 1.015 (1.005-1.025); Urobilinogen 1 mg/dL (0-1)
[2021-10-02 10:07] LABS: Mucus SLIGHT /HPF (NEGATIVE)
[2021-10-02] MEDS ORDERED: Compazine 10 MG/2 ML IV PRN (12:23)
[2021-10-02] MEDS: Dextrose 5%-Lr IV Solution 1000 ML 1,000 ML IV SCH ×2 (12:55→21:40)
--- NOTE | 2021-10-02 13:18 | OP ---
SURGERY DATE/TIME: 10/02/2021 0808 PREOPERATIVE DIAGNOSES: 1) Term intrauterine . 2) History of prior section. POSTOPERATIVE DIAGNOSES: 1) Term intrauterine . 2) History of prior section. PROCEDURE: Repeat low transverse section. SURGEON: Herson Acosta M.D. ESTIMATED BLOOD LOSS: 300 ml. IV FLUIDS: 1 liter of lactated Ringers. URINE OUTPUT: 350 cc of clear straw-colored urine. ANESTHESIA: Spinal by Arnaldo Bryant CRNA. SPECIMENS: None. DESCRIPTION OF PROCEDURE: After informed written consent was obtained, the patient was taken to the operating room. She had spinal anesthesia performed and Arcos was inserted. She was prepped and draped in the usual sterile fashion. After adequate level of anesthesia was assessed, a low transverse skin incision was made by knife and carried down through the subcutaneous fat to the level of the fascia which was nicked on both sides of the midline. Fascia was then extended in horizontal using curved Lindsay scissors. The superior free edge of the fascia was grasped with Stu clamps and the underlying rectus muscles were dissected free. The same was repeated inferiorly. The peritoneal cavity was opened and extended in horizontal and a bladder blade was created and reflected over the lower uterine segment. A horizontal uterine incision was made by knife and carried down to the level of the amniotic membranes which were carefully artificially ruptured. A viable male was delivered from the vertex presentation with a strong cry immediately after delivery. The nares and oropharynx were bulb suctioned free. The cord was clamped and cut and he was handed off to the awaiting nursery team. The placenta was manually extracted and the uterus was exteriorized. The uterine cavity was sponge curetted clean with a lap sponge. The uterine incision was closed with #1 chromic in a running locked fashion. Good closure and good hemostasis were achieved. A small area of oozing and a hematoma which was rectified with figure-of-8 suture of the left mid aspect of the incision. Again, good closure and good hemostasis were verified and achieved. The posterior cul-de-sac was wiped free of blood and clot with a moist lap sponge and the uterus was returned to the peritoneal cavity. Lateral gutters were wiped free of blood and clot. Again, the uterine incision was inspected and noted to be hemostatic with good closure. Next, the fascia was closed with 0 Vicryl in a running fashion. Good closure and good hemostasis were achieved at this level. The subcutaneous fat was irrigated with warm, sterile saline. Areas of bleeding were cauterized with electrocautery. Finally, the skin layer was closed with 4-0 undyed Vicryl in a running subcuticular fashion. Steri-Strips and occlusive dressing were placed over the incision. The patient was transferred to the recovery in good condition.
[2021-10-03 05:12] LABS: Basophil (Absolute #) 0.01 x10^3/uL (0-0.4); Eosinophil % 0.6 % (0.00-5.0); Eosinophil (Absolute #) 0.06 x10^3/uL (0-0.5); Hematocrit 28.2 % (35-47); Hemoglobin 8.6 g/dL (12.0-16.0); Lymphocyte (Absolute #) 1.38 x10^3/uL (1.0-4.6); Lymphocytes % 14.9 % (24.0-44.0); Mean Cell Volume 83.7 fL (78-100); Mean Corpuscular Hemoglobin 25.5 pg (26-32); Mean Corpuscular Hgb Concent. 30.5 g/dL (32-36); Mean Platelet Volume 12.1 fL (7.5-11.0); Monocyte (Absolute #) 0.84 x10^3/uL (0.0-1.3); Monocytes % 9.1 % (0.0-12.0); Neutrophil % 74.5 % (36.0-66.0); Platelet Count 223 x10^3/uL (150-450); Red Blood Count 3.37 x10^6/uL (4.1-5.4); Red Cell Distribution Width 14.7 % (11.5-14.0); White Blood Count 9.3 x10^3/uL (4.0-10.5)
[2021-10-03] MEDS: Docusate Sodium 100 MG PO SCH ×3 (05:17→22:54)
--- NOTE | 2021-10-03 07:57 | PCM.NOTE ---
Date and Time: 10/03/21 0756 Subjective Assessment: pain is well controlled, patient ambulating, mild lochia. feels well, going well Objective Exam General Appearance: no apparent distress Neurologic Exam: alert, oriented x 3 Respiratory Exam: normal breath sounds, lungs clear, No respiratory distress Cardiovascular Exam: regular rate/rhythm, normal heart sounds Gastrointestinal/Abdomen Exam: soft, other (fundus firm, incision clean, dry, intact), No tenderness, No mass Extremity Exam: normal inspection, normal range of motion OBJECTIVE DATA Vital Signs: Vital Signs - 24 hr Temp Pulse Resp BP Pulse Ox 10/03/21 07:00 97 10/03/21 05:46 98 10/03/21 05:00 98.1 F 83 18 130/57 97 10/03/21 03:58 97 10/03/21 02:54 98 10/03/21 01:51 97 10/03/21 00:59 98 10/03/21 00:00 98.1 F 83 130/57 98 10/02/21 23:36 98 10/02/21 22:59 97.7 F 73 16 116/61 97 10/02/21 21:25 95 10/02/21 21:00 95 10/02/21 19:53 95 10/02/21 19:00 95 10/02/21 18:52 99 10/02/21 18:00 98.1 F 70 16 133/70 95 10/02/21 17:56 98.1 F 70 16 133/70 95 10/02/21 17:37 97 10/02/21 17:00 97 10/02/21 16:00 98 10/02/21 15:00 99 10/02/21 14:00 98.5 F 88 18 105/58 100 10/02/21 13:00 97 10/02/21 12:52 100 10/02/21 12:45 57 L 18 111/74 100 10/02/21 11:49 64 18 111/60 100 10/02/21 11:15 75 18 123/68 100 10/02/21 11:00 100 10/02/21 10:45 68 16 142/75 99 10/02/21 10:30 88 18 125/70 100 10/02/21 10:15 67 18 100/53 100 10/02/21 10:00 70 18 128/59 99 Oxygen-Last 24 hours Oxygen Flowrate (L/min)-RT 2 Oxygen Flowrate (L/min)-RT 2 Pain Assessment - Last Documented Pain Intensity 0 Pain Scale Used 0-10 Pain Scale Intake and Output: Intake & Output 09/30/21 10/01/21 10/02/21 10/03/21 11:59 11:59 11:59 11:59 Intake Total 4220 Output Total 2150 Balance 2070 Weight 77.111 kg Lab Results: Lab Results-Last 24 Hours 10/02/21 10/03/21 Range/Units 08:34 05:14 WBC 9.3 (4.0-10.5) x10^3/uL RBC 3.37 L (4.1-5.4) x10^6/uL Hgb 8.6 L (12.0-16.0) g/dL Hct 28.2 L (35-47) % MCV 83.7 (78-100) fL MCH 25.5 L (26-32) pg MCHC 30.5 L (32-36) g/dL RDW 14.7 H (11.5-14.0) % Plt Count 223 (150-450) x10^3/uL MPV 12.1 H (7.5-11.0) fL Gran % 74.5 H (36.0-66.0) % Immature Gran % (Auto) 0.8 H (0.00-0.4) % Nucleat RBC Rel Count 0.0 (0.00-0.1) % Eos # (Auto) 0.06 (0-0.5) x10^3/uL Immature Gran # (Auto) 0.07 H (0.00-0.03) x10^3u/L Absolute Lymphs (auto) 1.38 (1.0-4.6) x10^3/uL Absolute Monos (auto) 0.84 (0.0-1.3) x10^3/uL Absolute Nucleated RBC 0.00 (0.00-0.01) x10^3u/L Lymphocytes % 14.9 L (24.0-44.0) % Monocytes % 9.1 (0.0-12.0) % Eosinophils % 0.6 (0.00-5.0) % Basophils % 0.1 (0.0-0.4) % Absolute Granulocytes 6.90 (1.4-6.9) x10^3/uL Basophils # 0.01 (0-0.4) x10^3/uL Urinalys Dipstick Clnc MAIN LAB Urine Color YELLOW (YELLOW) Urine Appearance CLEAR (CLEAR) Urine pH 6.5 (5-6) Ur Specific [place] 1.015 (1.005-1.025) POC Urine Protein Conf NEGATIVE (Negative) Urine Ketones SMALL-15 (NEGATIVE) Urine Nitrite NEGATIVE (NEGATIVE) Urine Bilirubin NEGATIVE (NEGATIVE) Urine Urobilinogen 1 (0-1) mg/dL Urine Leukocytes NEGATIVE (NEGATIVE) Urine WBC (Auto) NONE (0-5) /HPF Urine RBC (Auto) NONE (0-2) /HPF U Epithel Cells (Auto) NONE (FEW) /HPF Urine Bacteria (Auto) NONE (NEGATIVE) /HPF Urine RBC NEGATIVE (0-5) Adrien/ul Urine Mucus (Auto) SLIGHT (NEGATIVE) /HPF Urine Glucose NEGATIVE (NEGATIVE) mg/dL Multi-Disciplinary Progress Notes: Multi-Disciplinary Progress Notes 10/02/21 09:11 Respiratory Note by Joy Contreras Stand by for csection. No respiratory intervention needed at this time. Initialized on 10/02/21 09:11 - END OF NOTE Assessment/Plan (1) delivery delivered Current Visit: Yes Status: Acute Assessment & Plan: routine post-op care, gave nursing ok to remove IV Code(s): O82 - ENCOUNTER FOR DELIVERY WITHOUT INDICATION
[2021-10-03] MEDS ORDERED: Adacel Vial IM ONE (09:00)
[2021-10-03] MEDS: FERREX 150 PO SCH (10:02)
[2021-10-03] MEDS: MOTRIN 400 MG PO PRN ×2 (10:02→21:20)
[2021-10-03] MEDS: NORCO 5/325 MG PO PRN ×2 (13:09→22:54)
[2021-10-04 04:12] VITALS: O2SAT 100
[2021-10-04] MEDS: NORCO 5/325 MG PO PRN (06:20)
--- NOTE | 2021-10-04 07:58 | PCM.DS ---
Discharge Summary Date of Admission: 10/02/21 05:52 Admitting Physician: SPENCER SUMMERS Consults: Consults on Case 10/02/21 05:00 Notify Anesthesia Provider ROUTINE Notify Physician OF ADMISSION 10/02/21 07:26 Navigation ONCE Primary Care Provider: HONG GUTIERRES Allergies Allergies paper tape Allergy (Mild, Uncoded 10/02/21 06:18) Rash Hospital Summary - Hospital Course Hospital Course: patient had repeat at 39wks, no complications and doing well postop, pain controlled with norco, mild lochia, tolerating po - Vitals & Intake/Output Vital Signs: Vital Signs Temperature 96.4 F 10/04/21 02:00 Pulse Rate 66 10/04/21 02:00 Respiratory Rate 18 10/04/21 02:00 Blood Pressure 129/68 10/04/21 02:00 O2 Sat by Pulse Oximetry 100 10/04/21 02:00 Intake & Output: Intake & Output 10/01/21 10/02/21 10/03/21 10/04/21 11:59 11:59 11:59 11:59 Intake Total 4220 360 Output Total 2150 300 Balance 2070 60 Weight 77.111 kg - Lab Result Diagrams: 10/03/21 05:14 Micro Results-Entire Visit: Microbiology 10/02/21 08:34 Urine Culture - Preliminary Catherized NO GROWTH TO DATE - Procedures and Test Procedures and Tests throughout Hospitalization: Therapy Orders & Screens 10/02/21 09:10 Standby ROUTINE Comment: Diagnosis: Repeat Section 10/02/21 18:51 Oxygen Nasal Cannula 2 lpm Comment: Diagnosis: Repeat Section Discharge Exam General Appearance: no apparent distress Neurologic Exam: alert, oriented x 3 Respiratory Exam: normal breath sounds, lungs clear, No respiratory distress Cardiovascular Exam: regular rate/rhythm, normal heart sounds Gastrointestinal/Abdomen Exam: soft, other (incision clean, dry, intact), No tenderness, No mass Extremity Exam: normal inspection, normal range of motion Skin Exam: normal color, warm, dry Final Diagnosis/Problem List - Final Discharge Diagnosis/Problem (1) delivery delivered Current Visit: Yes Status: Acute Code(s): O82 - ENCOUNTER FOR DELIVERY WITHOUT INDICATION - Discharge Disposition: Home, Self-Care Condition: Stable Prescriptions: New Hydrocodone/Acetaminophen [Hydrocodone-Acetamin 5-325 mg] 1 tab PO Q6HPRN PRN #28 tablet MDD 4 PRN Reason: Pain Continue Mv-Mn/Iron/FA/Herbal/Digestive [ One Tablet] 1 tab PO DAILY Follow up with: SPENCER SUMMERS MD [ACTIVE STAFF] - 1 Week
[2021-10-04 08:49] VITALS: PULSE 82
[2021-10-04] MEDS: Docusate Sodium 100 MG PO SCH (09:59)
[2021-10-04] MEDS: FERREX 150 PO SCH (09:59)
[2021-10-04] MEDS: MOTRIN 400 MG PO PRN (10:25)
[2021-10-04 15:30] VITALS: BP 122/79
== END 2021-10-04 15:15 | disposition home or self-care (01) | DRG 788 ==
LOC: OB 05:52 → MED SURG 17:45
PROVIDERS: ADMIT Family Medicine; ATTEND Family Medicine
PROC: 10D00Z1 Extraction of Products of Conception, Low, Open Approach (ICD-10-PCS; principal; 2021-10-02)
DX: O82 Encounter for cesarean delivery without indication (principal); Z3A.39 39 weeks gestation of pregnancy; Z37.0 Single live birth; Z98.891 History of uterine scar from previous surgery; Z20.828 Contact with and (suspected) exposure to other viral communicable diseases
CPT/HCPCS: 36415; 62322; 64488; 76937; 76942; 80307; 81001; 85025; 85027; 85610; 85730; 86850; 86900; 86901; 87086; 90384; 90715; 94762; 94799; J0690; J2274; J2370; J2405; J2590; L0625; A9270-GY

== ENCOUNTER 2021-11-24 05:31 | Emergency (ER) | payer OTHER ==
[2021-11-24] MEDS ORDERED: Sodium Chloride 0.9% 1000 ML 1,000 ML IV STA (05:48)
[2021-11-24] MEDS ORDERED: Sodium Chloride 0.9% 1000 ML 1,000 ML ONE (05:49)
[2021-11-24 06:05] LABS: Basophil (Absolute #) 0.01 x10^3/uL (0-0.4); Eosinophil % 0.4 % (0.00-5.0); Eosinophil (Absolute #) 0.03 x10^3/uL (0-0.5); Hematocrit 34.4 % (35-47); Hemoglobin 10.4 g/dL (12.0-16.0); Lymphocyte (Absolute #) 1.36 x10^3/uL (1.0-4.6); Lymphocytes % 18.7 % (24.0-44.0); Mean Corpuscular Hemoglobin 24.2 pg (26-32); Mean Corpuscular Hgb Concent. 30.2 g/dL (32-36); Mean Platelet Volume 10.3 fL (7.5-11.0); Monocyte (Absolute #) 0.85 x10^3/uL (0.0-1.3); Monocytes % 11.7 % (0.0-12.0); Neutrophil % 68.6 % (36.0-66.0); Platelet Count 298 x10^3/uL (150-450); Red Cell Distribution Width 15.2 % (11.5-14.0); White Blood Count 7.3 x10^3/uL (4.0-10.5)
[2021-11-24 06:16] LABS: ALBUMIN 4.6 g/dL (3.5-5.0); ALKALINE PHOSPHATASE 85 U/L (38-126); BLOOD UREA NITROGEN 9 mg/dL (7-17); CHLORIDE 102 mmol/L (98-107); Calcium 8.8 mg/dL (8.4-10.2); Carbon Dioxide 26 mmol/L (22-30); Creatinine 1 0.75 mg/dL (0.52-1.04); EST GLOMERULAR FILTRATION RATE > 60.0 ML/MIN; Glucose 96 mg/dL (74-106); Potassium 3.7 mmol/L (3.5-5.1); SGOT/AST 27 U/L (14-36); SGPT/ALT 11 U/L (0-35); SODIUM 136 mmol/L (137-145); Total Protein 7.5 g/dL (6.3-8.2)
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
[2021-11-24 06:58] VITALS: O2SAT 100
[2021-11-24 07:10] VITALS: BP 133/91; PULSE 84
[2021-11-24 07:18] LABS: Appearance CLOUDY (CLEAR); Bilirubin NEGATIVE (NEGATIVE); Glucose NEGATIVE (NEGATIVE); Ketones NEGATIVE (NEGATIVE)
[2021-11-24 07:19] LABS: Dipstick done @ ? MAIN LAB; Nitrite NEGATIVE (NEGATIVE); Protein,Urine Dip TRACE (Negative); RBC LARGE Ery/ul (0-5); Urobilinogen 1 mg/dL (0-1)
[2021-11-24 07:34] LABS: Epithelial Cells RARE /HPF (FEW); Mucus SLIGHT /HPF (NEGATIVE)
[2021-11-24 07:36] LABS: RBC >101 /HPF (0-2)
[2021-11-24 07:37] LABS: Urine Cultured Indicated? NO
[2021-11-24] MEDS ORDERED: PROVERA10 MG PO SCH (10:00)
== END 2021-11-24 07:50 | disposition home or self-care (01) ==
LOC: ED 05:31
DX: N92.0 Excessive and frequent menstruation with regular cycle (principal); R53.1 Weakness; R53.83 Other fatigue; R42 Dizziness and giddiness; Z28.310 Unvaccinated for COVID-19
CPT/HCPCS: 36415; 80053; 81015; 81025; 85025; 96360; 99283; A9270-GY

== ENCOUNTER 2022-04-25 19:38 | Emergency (ER) | payer OTHER ==
[2022-04-25 19:53] VITALS: O2SAT 100
--- NOTE | 2022-04-25 20:37 | XRAY ---
Indication: 4th finger pain following fall. Comparison: None 3 view right hand demonstrates small nondisplaced avulsion type fracture base 4th distal phalanx, ulnar aspect. No other bony, articular, or soft tissue abnormalities.
[2022-04-25] MEDS ORDERED: TORAdol 30 mg Injection IM ONE (21:06)
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
[2022-04-25] MEDS ORDERED: TORAdol 30 mg Injection ONE (21:09)
[2022-04-25 21:20] VITALS: BP 124/61; PULSE 70
== END 2022-04-25 21:46 | disposition home or self-care (01) ==
LOC: ED 19:38
DX: S62.634A Displaced fracture of distal phalanx of right ring finger, initial encounter for closed fracture (principal); X50.0XXA Overexertion from strenuous movement or load, initial encounter; Z79.899 Other long term (current) drug therapy; Z28.310 Unvaccinated for COVID-19
CPT/HCPCS: 73130; 96372; 99283; J1885

== ENCOUNTER 2023-02-11 12:51 | Observation (INO) | payer OTHER ==
[2023-02-11 13:33] VITALS: BP 130/75; PULSE 84; RESP 18; O2SAT 99
[2023-02-11 13:44] LABS: Amphetamine,Urine NEGATIVE (NEGATIVE); Barbiturate,Urine NEGATIVE (NEGATIVE); Benzodiazepine,Urine NEGATIVE (NEGATIVE); Cocaine,Urine NEGATIVE (NEGATIVE); Methadone,Urine NEGATIVE (NEGATIVE); Opiate,Urine NEGATIVE (NEGATIVE); PCP,Urine NEGATIVE (NEGATIVE); THC,Urine NEGATIVE (NEGATIVE)
[2023-02-11 14:12] LABS: Appearance Clear (Clear); Bilirubin Negative (Negative); Blood Negative (Negative); Glucose, Urine Negative (Negative); Ketones Negative (Negative); Leukocyte Esterase Trace (Negative); Nitrite Negative (Negative); Ph 6.5 (4.6-8.0); Protein,Urine Dip Negative (Negative); Urobilinogen 0.2 mg/dL (0.2)
[2023-02-11 14:31] LABS: Bacteria Rare /HPF (None Seen); Epithelial Cells None Seen /HPF (None Seen); Hyaline Casts NONE SEEN /LPF (0-2); RBC 0-2 /HPF (0-5)
[2023-02-11 14:47] LABS: ADD URINE CULTURE? NO (NO)
--- NOTE | 2023-02-11 14:48 | XRAY ---
Indication: Right lower quadrant pain. Evaluate placenta and LARRY. Limited OB ultrasound demonstrates single intrauterine in cephalic presentation with heart rate 135 BPM. Anterior placenta without abruption/previa. Four-quadrant LARRY is 15.1 cm, largest pocket 4.8 cm.
== END 2023-02-11 15:41 | disposition home or self-care (01) ==
LOC: OB 12:51
PROVIDERS: ADMIT Family Medicine; ATTEND Family Medicine
DX: Z34.83 Encounter for supervision of other normal pregnancy, third trimester (principal); Z3A.31 31 weeks gestation of pregnancy; Z59.819 Housing instability, housed unspecified
CPT/HCPCS: 76815; 80307; 81001; G0378; G0379

== ENCOUNTER 2023-03-18 05:56 | Emergency (ER) | payer OTHER ==
[2023-03-18 06:15] VITALS: RESP 18; TEMP 97.6
[2023-03-18] MEDS ORDERED: XYLOCAINE 1% HCL 20 ML MDV ONE (06:46)
[2023-03-18] MEDS ORDERED: XYLOCAINE 1% HCL 20 ML MDV IJ ONE (06:48)
[2023-03-18] MEDS ORDERED: BACIGUENT PACKET ONE (07:06)
[2023-03-18] MEDS ORDERED: BACIGUENT PACKET TP ONE (07:06)
[2023-03-18 07:10] VITALS: BP 116/74; PULSE 74
[2023-03-18 07:15] VITALS: O2SAT 99
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
--- NOTE | 2023-03-18 08:52 | XRAY ---
Indication: Pain following injury. Comparison: None 2 view right 2nd finger obtained. No bony, articular, or soft tissue abnormalities.
== END 2023-03-18 07:30 | disposition home or self-care (01) ==
LOC: ED 05:56
DX: S61.210A Laceration without foreign body of right index finger without damage to nail, initial encounter (principal); W20.8XXA Other cause of strike by thrown, projected or falling object, initial encounter; Z79.899 Other long term (current) drug therapy; Z33.1 Pregnant state, incidental; Z28.310 Unvaccinated for COVID-19
CPT/HCPCS: 12001; 73140; 96372; 99283; A9270-GY

== ENCOUNTER 2023-03-19 12:12 | Observation (INO) | payer OTHER ==
[2023-03-19 13:54] VITALS: BP 147/83; PULSE 95; RESP 20; TEMP 97.2; O2SAT 96
[2023-03-19] MEDS ORDERED: Zofran 4 MG/2 ML VIAL IV PRN (13:58)
[2023-03-19] MEDS ORDERED: Lactated Ringers 1,000 ML IV SCH (14:00)
[2023-03-19 14:13] LABS: Absolute Neutrophil Ct (ANC) 16.44 x10^3/uL (1.4-6.9); BASOPHIL % 0.1 % (0.0-0.4); Basophil (Absolute #) 0.02 x10^3/uL (0-0.4); Eosinophil (Absolute #) 0 x10^3/uL (0-0.5); Hematocrit 39.3 % (35-47); Hemoglobin 12.3 g/dL (12.0-16.0); IMMATURE GRAN % 0.5 % (0.00-0.4); Lymphocyte (Absolute #) 1.03 x10^3/uL (1.0-4.6); Lymphocytes % 5.6 % (24.0-44.0); Mean Cell Volume 81.9 fL (78-100); Mean Corpuscular Hemoglobin 25.6 pg (26-32); Mean Corpuscular Hgb Concent. 31.3 g/dL (32-36); Mean Platelet Volume 11.1 fL (7.5-11.0); Monocyte (Absolute #) 0.75 x10^3/uL (0.0-1.3); Monocytes % 4.1 % (0.0-12.0); Neutrophil % 89.7 % (36.0-66.0); Platelet Count 297 x10^3/uL (150-450); Red Cell Distribution Width 16.3 % (11.5-14.0); White Blood Count 18.3 x10^3/uL (4.0-10.5)
[2023-03-19 14:43] LABS: ALBUMIN 2.5 g/dL (3.5-5.0); ANION GAP 12.8 MEQ/L (5-15); BILIRUBIN,TOTAL 0.8 mg/dL (0.2-1.3); Creatinine 1 0.5 mg/dL (0.52-1.04); EST GLOMERULAR FILTRATION RATE 132.6 ML/MIN; Potassium 4.9 mmol/L (3.5-5.1); Total Protein 7.8 g/dL (6.3-8.2)
--- NOTE | 2023-03-19 15:06 | XRAY ---
Indication: Abdominal pain. Hyperemesis. Two-dimensional gallbladder sonogram performed. Comparison: None Visualized gallbladder normally distended without gallstones, wall thickening, or pericholecystic fluid. Common bile duct measures 2.6 mm. No intrahepatic biliary distention. Remaining visualized liver and pancreas are homogeneous in echogenicity. No organomegaly or free fluid. Right kidney measures 9.0 x 4.2 x 5.0 cm and sonographically normal. Impression: Negative gallbladder sonogram.
--- NOTE | 2023-03-19 15:08 | XRAY ---
Indication: Hyperemesis. Abdominal pain. Evaluate LARRY. Limited OB ultrasound performed to evaluate LARRY demonstrates single intrauterine with heart rate 135 BPM. Four-quadrant LARRY is 18.2 cm, largest pocket 5.4 cm.
== END 2023-03-19 16:15 | disposition home or self-care (01) ==
LOC: OB 12:12
PROVIDERS: ADMIT Family Medicine; ATTEND Family Medicine
DX: Z34.83 Encounter for supervision of other normal pregnancy, third trimester (principal); Z3A.36 36 weeks gestation of pregnancy
CPT/HCPCS: 36415; 76705; 76815; 80053; 85025; G0378; G0379; J2405

== ENCOUNTER 2023-04-02 05:29 | Inpatient (IN) | payer OTHER ==
[2023-04-02] MEDS: Lactated Ringers 1,000 ML IV SCH ×2 (06:26→21:50)
[2023-04-02 06:27] LABS: Hematocrit 32.6 % (35-47); Hemoglobin 9.9 g/dL (12.0-16.0); Mean Cell Volume 80.5 fL (78-100); Mean Corpuscular Hemoglobin 24.4 pg (26-32); Mean Corpuscular Hgb Concent. 30.4 g/dL (32-36); Platelet Count 278 x10^3/uL (150-450); Red Blood Count 4.05 x10^6/uL (4.1-5.4); Red Cell Distribution Width 16.1 % (11.5-14.0); White Blood Count 12.1 x10^3/uL (4.0-10.5)
[2023-04-02] MEDS ORDERED: Reglan 10 MG/2 ML IV SCH (06:30)
[2023-04-02] MEDS ORDERED: CEFAZOLIN 2 GM-D5W BAG** 2 GM/50 ML ML IV SCH (06:30)
[2023-04-02] MEDS ORDERED: Pepcid 20 MG VIAL IV SCH (06:30)
[2023-04-02] MEDS ORDERED: SOD CITRATE-CITRIC ACID SOLN PO SCH (06:30)
[2023-04-02 06:44] LABS: INR 0.87 (0.8-3.0); PROTIME 9.6 SECONDS (9.4-12.5); PTT 23.8 SECONDS (25.1-36.5)
[2023-04-02 07:05] LABS: ABO TYPING A; RH TYPING POSITIVE
[2023-04-02 07:06] LABS: Antibody Screen NEGATIVE (NEGATIVE)
[2023-04-02] MEDS ORDERED: Lactated Ringers 1,000 ML IV ONE (07:10)
[2023-04-02] MEDS ORDERED: MOTRIN 400 MG PO PRN (07:28)
[2023-04-02] MEDS ORDERED: Dulcolax 10 MG SUPP PR PRN ×2 (07:28→07:36)
[2023-04-02] MEDS ORDERED: LANSINOH 40 GM TOP PRN ×2 (07:28→07:36)
[2023-04-02] MEDS ORDERED: Mylicon 80MG PO PRN ×2 (07:28→07:36)
[2023-04-02] MEDS ORDERED: TYLENOL EXTRA STRENGTH 500 MG PO PRN (07:28)
[2023-04-02] MEDS ORDERED: CORTISONE 1% CREAM TP PRN ×2 (07:28→07:36)
[2023-04-02] MEDS ORDERED: Pitocin 10 UNITS/ML ONE (07:28)
[2023-04-02] MEDS ORDERED: Astramorph-Pf 5 MG/10 ML ONE (07:29)
[2023-04-02] MEDS ORDERED: Marcaine Mpf 0.5% Vial 30 Ml ONE (07:36)
[2023-04-02] MEDS ORDERED: OFIRMEV 100 ML IV ONE (07:37)
[2023-04-02] MEDS ORDERED: PHENYLEPHRINE HCL ONE (08:02)
[2023-04-02] MEDS ORDERED: Ephedrine Sulfate 50 MG/ML ONE (08:02)
[2023-04-02 08:03] LABS: Appearance Clear (Clear); Bilirubin Negative (Negative); Blood Negative (Negative); Glucose, Urine Negative (Negative); Ketones Negative (Negative); Leukocyte Esterase Negative (Negative); Nitrite Negative (Negative); Ph 6.5 (4.6-8.0); Protein,Urine Dip Trace (Negative); Urobilinogen 0.2 mg/dL (0.2)
[2023-04-02] MEDS ORDERED: Zofran 4 MG/2 ML VIAL ONE (08:25)
[2023-04-02] MEDS ORDERED: SUBLIMAZE 100 MCG/2 ML ONE (08:40)
[2023-04-02 08:44] LABS: ADD URINE CULTURE? NO (NO); Epithelial Cells Few /HPF (None Seen)
[2023-04-02] MEDS ORDERED: BENADRYL 50 MG/ML IV PRN (09:00)
[2023-04-02] MEDS ORDERED: CLARITIN 10 MG PO PRN (09:00)
[2023-04-02] MEDS ORDERED: HOLD NARCOTIC ANALGESICS AND SEDATIVES X24 HR MC PRN (09:00)
[2023-04-02] MEDS ORDERED: Nubain 10 MG/ML IV PRN (09:00)
[2023-04-02] MEDS ORDERED: Narcan 0.4 MG/ML IV PRN (09:00)
[2023-04-02] MEDS ORDERED: Sodium Chloride 0.9% 10 ML FLUSH Syringe IJ PRN (09:00)
[2023-04-02] MEDS ORDERED: Zofran 4 MG/2 ML VIAL IV PRN (09:00)
[2023-04-02 09:31] LABS: Amphetamine,Urine NEGATIVE (NEGATIVE); Barbiturate,Urine NEGATIVE (NEGATIVE); Benzodiazepine,Urine NEGATIVE (NEGATIVE); Cocaine,Urine NEGATIVE (NEGATIVE); Methadone,Urine NEGATIVE (NEGATIVE); Opiate,Urine NEGATIVE (NEGATIVE); PCP,Urine NEGATIVE (NEGATIVE); THC,Urine NEGATIVE (NEGATIVE)
[2023-04-02] MEDS ORDERED: EXPAREL 133 MG/10 ML VIAL IJ ONE (10:28)
--- NOTE | 2023-04-02 10:32 | OP ---
SURGERY DATE/TIME: 04/02/2023 0742 PREOPERATIVE DIAGNOSES: 1) History of prior section. 2) Term intrauterine . POSTOPERATIVE DIAGNOSES: 1) History of prior section. 2) Term intrauterine . PROCEDURE: Repeat low transverse section. SURGEON: Herson Acosta M.D. ANESTHESIA: MAC by Arnaldo Bryant CRNA. QUANTITATIVE BLOOD LOSS: 741 ml. IV FLUIDS: 1 liters of crystalloid. URINE OUTPUT: 300 ml of clear straw-colored urine. SPECIMENS: None. DESCRIPTION OF PROCEDURE: After informed written consent was obtained, the patient was taken to the operating room. She was prepped and draped in the usual sterile fashion after she underwent spinal anesthesia. Adequate level of anesthesia was assessed and a low transverse skin incision was made by knife and carried down through the subcutaneous fat to the level of the fascia. The fascia was nicked on both sides of the midline and extended horizontal using curved Lindsay scissors. The superior free edge of the fascia was then grasped with Stu clamps and the underlying rectus muscles were dissected free. The same was repeated inferiorly. Next, the peritoneal cavity was opened bluntly in horizontal fashion. Bladder flap was then created and reflected over the lower uterine segment. A horizontal uterine incision was made by knife and carried down to the level of the amniotic membranes which were carefully artificially ruptured. A viable female with a strong cry immediately upon delivery was delivered from the vertex presentation. The cord was wrapped around the shoulder but it was loose and easily reducible. The cord was clamped and cut after the oropharynx and nares were bulb suctioned free. The infant was handed off to the awaiting nursery team. The placenta was manually extracted and the uterus was exteriorized and the uterine cavity was sponge curetted clean with lap sponge. Next, the uterus is closed with #1 chromic in a running locked fashion which provided good closure and good hemostasis at that level. The posterior cul-de-sac was wiped free of blood and clot with a moist lap sponge and then the uterus was returned to the peritoneal cavity. Lateral gutters were inspected and wiped free of blood and clot using a moist lap sponge. The uterus was well approximated and hemostatic. The uterus showed satisfactory closure and good hemostasis at that level. Next, the fascia was closed with 0 Vicryl in a running fashion. Good closure and good hemostasis were achieved at this level as well. The subcutaneous fat was irrigated with warm, sterile saline and any areas of bleeding were cauterized with electrocautery. Finally, the skin layer was closed with 4-0 undyed Vicryl in a running subcuticular fashion. Steri-Strips and occlusive dressing were placed over the incision. The patient was transferred to the recovery room in good condition and hemodynamically stable during the entire procedure.
[2023-04-02] MEDS: Dextrose 5%-Lr IV Solution 1000 ML 1,000 ML IV SCH ×2 (11:37→20:26)
[2023-04-02 12:55] LABS: Appearance Clear (Clear); Bilirubin Negative (Negative); Blood Negative (Negative); Glucose, Urine Negative (Negative); Ketones Negative (Negative); Leukocyte Esterase Negative (Negative); Nitrite Negative (Negative); Protein,Urine Dip Negative (Negative); Urobilinogen 0.2 mg/dL (0.2)
[2023-04-02 13:30] LABS: WBC 0-2 /HPF (0-5)
[2023-04-02 13:31] LABS: Bacteria None Seen /HPF (None Seen); Epithelial Cells Rare /HPF (None Seen); RBC NONE SEEN /HPF (0-5)
[2023-04-02] MEDS: PERCOCET TABLET 5/325MG PO PRN (15:01)
[2023-04-02] MEDS ORDERED: FERREX 150 PO SCH (22:00)
[2023-04-02] MEDS ORDERED: Docusate Sodium 100 MG PO SCH (22:00)
[2023-04-03] MEDS: PERCOCET TABLET 5/325MG PO PRN ×2 (00:02→04:57)
[2023-04-03] MEDS: Docusate Sodium 100 MG PO SCH ×3 (00:03→20:25)
[2023-04-03 05:13] LABS: BASOPHIL % 0.1 % (0.0-0.4); Basophil (Absolute #) 0.01 x10^3/uL (0-0.4); Eosinophil % 0.6 % (0.00-5.0); Eosinophil (Absolute #) 0.06 x10^3/uL (0-0.5); Hematocrit 27.7 % (35-47); Hemoglobin 8.4 g/dL (12.0-16.0); IMMATURE GRAN # 0.05 x10^3u/L (0.00-0.03); IMMATURE GRAN % 0.5 % (0.00-0.4); Lymphocyte (Absolute #) 2.09 x10^3/uL (1.0-4.6); Lymphocytes % 20.3 % (24.0-44.0); Mean Cell Volume 83.2 fL (78-100); Mean Corpuscular Hemoglobin 25.2 pg (26-32); Mean Corpuscular Hgb Concent. 30.3 g/dL (32-36); Mean Platelet Volume 12.3 fL (7.5-11.0); Monocyte (Absolute #) 1.21 x10^3/uL (0.0-1.3); Monocytes % 11.7 % (0.0-12.0); Neutrophil % 66.8 % (36.0-66.0); Platelet Count 240 x10^3/uL (150-450); Red Blood Count 3.33 x10^6/uL (4.1-5.4); Red Cell Distribution Width 16.4 % (11.5-14.0); White Blood Count 10.3 x10^3/uL (4.0-10.5)
[2023-04-03] MEDS: FERREX 150 PO SCH (08:45)
[2023-04-03] MEDS: MOTRIN 400 MG PO PRN ×2 (08:45→15:28)
[2023-04-03] MEDS: TYLENOL EXTRA STRENGTH 500 MG PO PRN ×2 (13:33→20:26)
[2023-04-04] MEDS: MOTRIN 400 MG PO PRN ×2 (02:20→09:43)
[2023-04-04 02:25] VITALS: O2SAT 98
[2023-04-04] MEDS: Docusate Sodium 100 MG PO SCH (09:43)
[2023-04-04] MEDS: FERREX 150 PO SCH (09:43)
--- NOTE | 2023-04-04 11:25 | PCM.DS ---
Discharge Summary Date of Admission: 04/02/23 05:29 Admitting Physician: SPENCER SUMMERS Consults: Consults on Case 04/02/23 05:00 Notify Anesthesia Provider PRN 04/02/23 11:59 Navigation ONCE Primary Care Provider: SPENCER SUMMERS Allergies Allergies paper tape Allergy (Mild, Uncoded 03/18/23 06:16) Rash Hospital Summary - Hospital Course Hospital Course: had repeat with uncomplicated post-op course, doing well postoperatively. - Vitals & Intake/Output Vital Signs: Vital Signs Temperature 97.9 F 04/04/23 09:00 Pulse Rate 72 04/04/23 09:00 Respiratory Rate 14 04/04/23 09:00 Blood Pressure 120/81 04/04/23 09:00 O2 Sat by Pulse Oximetry 98 04/04/23 09:00 Intake & Output: Intake & Output 04/01/23 04/02/23 04/03/23 04/04/23 11:59 11:59 11:59 11:59 Intake Total 8700 2400 Output Total 4000 5 Balance 4700 2395 Weight 79.379 kg - Lab Result Diagrams: 04/03/23 04:10 Micro Results-Entire Visit: Microbiology 04/02/23 07:59 Urine Culture - Final Catherized NO GROWTH - Procedures and Test Procedures and Tests throughout Hospitalization: Therapy Orders & Screens 04/02/23 08:47 Standby STAT Comment: Diagnosis: Repeat Csection Discharge Exam General Appearance: no apparent distress Neurologic Exam: alert, oriented x 3 Respiratory Exam: normal breath sounds, lungs clear, No respiratory distress Cardiovascular Exam: regular rate/rhythm, normal heart sounds Gastrointestinal/Abdomen Exam: soft, normal bowel sounds, other (incision clean, dry, intact and well approximated) Extremity Exam: normal inspection, normal range of motion Skin Exam: normal color, warm, dry Final Diagnosis/Problem List - Final Discharge Diagnosis/Problem (1) delivery delivered Current Visit: No Status: Acute Code(s): O82 - ENCOUNTER FOR DELIVERY WITHOUT INDICATION - Discharge Disposition: Home, Self-Care Condition: Stable Prescriptions: New Hydrocodone/Acetaminophen [Hydrocodone-Acetamin 5-325 mg] 1 tab PO Q6HPRN PRN 7 Days #28 tablet MDD 4 PRN Reason: Pain Follow up with: SPENCER SUMMERS MD [Primary Care Provider] - 04/08/23 10:00 am
[2023-04-04] MEDS ORDERED: NORCO 5/325 MG PO PRN (11:28)
[2023-04-04 15:54] VITALS: BP 141/82; PULSE 94; RESP 18; TEMP 98.4
== END 2023-04-04 18:50 | disposition home or self-care (01) | DRG 788 ==
LOC: OB 05:29 → UNDOADMOB 05:29 → EDSTATUS 07:35
PROVIDERS: ADMIT Family Medicine; ATTEND Family Medicine
PROC: 10D00Z1 Extraction of Products of Conception, Low, Open Approach (ICD-10-PCS; principal; 2023-04-02)
DX: O34.211 Maternal care for low transverse scar from previous cesarean delivery (principal); Z3A.37 37 weeks gestation of pregnancy; Z37.0 Single live birth; Z20.828 Contact with and (suspected) exposure to other viral communicable diseases
CPT/HCPCS: 36415; 62322; 64488; 76937; 76942; 80307; 81001; 85025; 85027; 85610; 85730; 86850; 86900; 86901; 87086; 94799; J0690; J1200; J2274; J2371; J2405; J2590; J3010; L0625; A9270-GY

== ENCOUNTER 2023-09-28 23:10 | Emergency (ER) | payer OTHER ==
[2023-09-28 23:27] VITALS: RESP 18; TEMP 98.3
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
[2023-09-29 00:27] VITALS: BP 133/95; PULSE 77; O2SAT 98
--- NOTE | 2023-09-29 09:13 | XRAY ---
Indication: Pain and bruising following injury. Comparison: None 3 view left 4th finger obtained. Query incomplete hairline fracture base distal phalanx ulnar aspect . No other bony, articular, or soft tissue abnormalities.
== END 2023-09-29 00:27 | disposition home or self-care (01) ==
LOC: ED 23:10
DX: S62.665A Nondisplaced fracture of distal phalanx of left ring finger, initial encounter for closed fracture (principal); X50.0XXA Overexertion from strenuous movement or load, initial encounter; Y93.K1 Activity, walking an animal
CPT/HCPCS: 73140; 99283

== ENCOUNTER 2024-01-09 08:11 | Emergency (ER) | payer OTHER ==
[2024-01-09 08:24] VITALS: PULSE 83; TEMP 98.1; O2SAT 100
[2024-01-09 08:49] LABS: Absolute Neutrophil Ct (ANC) 2.94 x10^3/uL (1.56-6.13); BASOPHIL % 0.2 % (0.1-1.2); Basophil (Absolute #) 0.01 x10^3/uL (0.01-0.08); Eosinophil % 2.2 % (0.7-5.8); Eosinophil (Absolute #) 0.11 x10^3/uL (0.04-0.36); Hematocrit 36.6 % (34.1-44.9); Hemoglobin 11.5 g/dL (11.2-15.7); IMMATURE GRAN # 0.02 x10^3u/L (0.001-0.031); IMMATURE GRAN % 0.4 % (0.001-0.429); Lymphocyte (Absolute #) 1.35 x10^3/uL (1.18-3.74); Lymphocytes % 27.4 % (19.3-51.7); Mean Cell Volume 78.9 fL (79.4-94.8); Mean Corpuscular Hemoglobin 24.8 pg (25.6-32.2); Mean Corpuscular Hgb Concent. 31.4 g/dL (32.2-35.5); Mean Platelet Volume 10.7 fL (9.4-12.3); Monocytes % 10.1 % (4.7-12.5); Neutrophil % 59.7 % (34.0-71.1); Platelet Count 250 x10^3/uL (182-369); Red Blood Count 4.64 x10^6/uL (3.93-5.22); Red Cell Distribution Width 14.6 % (11.7-14.4); White Blood Count 4.9 x10^3/uL (3.98-10.04)
[2024-01-09] MEDS ORDERED: Zofran 4 MG/2 ML VIAL ONE (08:50)
[2024-01-09] MEDS ORDERED: Sodium Chloride 0.9% 1000 ML 1,000 ML ONE (08:50)
[2024-01-09] MEDS: Zofran 4 MG/2 ML VIAL IV ONE (08:53)
[2024-01-09] MEDS: Sodium Chloride 0.9% 1000 ML 1,000 ML IV STA (08:53)
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
[2024-01-09 09:02] LABS: ALBUMIN 4.6 g/dL (3.5-5.0); BILIRUBIN,TOTAL 0.7 mg/dL (0.2-1.3); Calcium 9.1 mg/dL (8.4-10.2); Creatinine 1 0.74 mg/dL (0.52-1.04); EST GLOMERULAR FILTRATION RATE 114.4 ML/MIN; Total Protein 7.6 g/dL (6.3-8.2)
[2024-01-09 09:09] LABS: HCG SERUM TEST NEGATIVE (NEGATIVE)
[2024-01-09 09:53] VITALS: BP 123/69
== END 2024-01-09 10:52 | disposition home or self-care (01) ==
LOC: ED 08:11
DX: K52.9 Noninfective gastroenteritis and colitis, unspecified (principal); R10.13 Epigastric pain; R11.0 Nausea; Z79.899 Other long term (current) drug therapy
CPT/HCPCS: 36000; 36415; 80053; 83690; 84703; 85025; 96360; 96374; 99284; J2405